=== PATIENT | female | born 1990 | race Caucasian/White ===

== ENCOUNTER 2018-10-20 14:15 | Emergency (ER) | payer OTHER ==
[2018-10-20 14:20] VITALS: BP 142/77
--- NOTE | 2018-10-20 16:02 | XRAY Report ---
Reason: Trauma Procedure Date: 10/20/2018 Accession Number: [id number] / [id number] Procedure: XR - Ankle 3 View LT CPT Code: FULL RESULT: EXAM: LEFT ANKLE RADIOGRAPHY EXAM DATE: 10/20/2018 02:39 PM. CLINICAL HISTORY: Trauma, pain. COMPARISON: None. TECHNIQUE: 3 views. FINDINGS: Bones: Normal. No fractures or bone lesions. Joints: Normal. No effusion. No subluxations. The ankle mortise is normally aligned. Soft Tissues: Prominent soft tissue swelling especially over the lateral malleolus. IMPRESSION: Soft tissue swelling. RADIA
--- NOTE | 2018-10-20 16:02 | XRAY Report ---
Reason: Trauma Procedure Date: 10/20/2018 Accession Number: [id number] / [id number] Procedure: XR - Foot 3 View LT CPT Code: FULL RESULT: EXAM: LEFT FOOT RADIOGRAPHY EXAM DATE: 10/20/2018 02:39 PM. CLINICAL HISTORY: Trauma, pain. COMPARISON: None. TECHNIQUE: 3 views. FINDINGS: Bones: Normal. No fractures or bone lesions. Joints: Normal. No subluxations. Soft Tissues: Unremarkable. IMPRESSION: Normal foot radiography. RADIA
--- NOTE | 2018-10-20 16:05 | ED Physician Documentation ---
PD HPI LOWER EXT INJURY - Stated complaint Stated Complaint: LT ANKLE INJURY - Chief complaint Chief Complaint: Ext Problem - History obtained from History obtained from: Patient - History of Present Illness PD HPI LOW EXT INJURY LOCATION: Left, Ankle, Foot Type of injury: Fall, Twist Where injury occurred: Work (works at a [employer]) Timing - onset: Today Timing - duration: Hours (1) Timing - details: Abrupt onset Pain level max: 5 Pain level now: 3 Improved by: Rest Worsened by: Moving, Palpating Associated symptoms: Swelling. No: Weakness, Numbness, Tingling Contributing factors: No: Anticoagulated Recently seen: Not recently seen Review of Systems Constitutional: denies: Fever : denies: Now EGA Skin: denies: Rash PD PAST MEDICAL HISTORY - Past Medical History Past Medical History: No - Past Surgical History Past Surgical History: No - Living Situation Living Situation: reports: With family Living Arrangement: reports: At home - Social History Does the pt have substance abuse?: No - Family History Family history: reports: Non contributory PD ED PE NORMAL - Vitals Vital signs reviewed: Yes - General General: Alert and oriented X 3, No acute distress - HEENT HEENT: Moist mucous membranes - Neck Neck: Supple, no meningeal sign - Derm Derm: Warm and dry - Extremities Extremities: Other (Diffuse tenderness to palpation about the left ankle. There is swelling over the lateral malleolus. No tenderness further up the leg or over the knee. Also has some tenderness over the Fourth and fifth metatarsals, no deformity. Neurovascular intact) - Neuro Neuro: Alert and oriented X 3 - Psych Psych: Normal mood, Normal affect Results - Vitals Vitals: Vital Signs - 24 hr 10/20/18 14:18 Temperature 36.1 C L Heart Rate 72 Respiratory 18 Rate Blood Pressure 142/77 H O2 Saturation 99 Oxygen O2 Source Room air - Rads (name of study) L foot xray Radiology: Prelim report reviewed, EMP read contemporaneously, See rad report (no fracture) L ankle xray Radiology: Prelim report reviewed, EMP read contemporaneously, See rad report (no fracture) PD MEDICAL DECISION MAKING - ED course Complexity details: reviewed results, re-evaluated patient, considered differential, d/w patient ED course: No acute findings on x-rays. Appears to be a sprain. Placed in an Aircast. She will follow-up with her doctor. Patient counseled regarding signs and symptoms for which I believe and urgent re-evaluation would be necessary. Patient with good understanding of and agreement to plan and is comfortable going home at this time This document was made in part using voice recognition software. While efforts are made to proofread this document, sound alike and grammatical errors may occur. Departure - Departure Disposition: 01 Home, Self Care Clinical Impression: Left ankle sprain Qualifiers: Encounter type: initial encounter Involved ligament of ankle: unspecified ligament Qualified Code(s): S93.402A - Sprain of unspecified ligament of left ankle, initial encounter Condition: Good Instructions: ED Sprain Ankle W X Ray Follow-Up: your,doctor in 1 week [Other] Comments: Your x-ray does not show any fracture today. You may bear weight as tolerated. You can use Motrin or Tylenol as needed for pain. You will be quite sore tomorrow. The brace will help you walk. If you are still having pain in 1 week, you should follow-up with your doctor for a repeat x-ray. return if you worsen. Discharge Date/Time: 10/20/18 16:38
== END 2018-10-20 16:38 | disposition home or self-care (01) ==
LOC: ED 14:15
DX: S93.402A Sprain of unspecified ligament of left ankle, initial encounter (principal); X50.1XXA Overexertion from prolonged static or awkward postures, initial encounter; Y92.29 Other specified public building as the place of occurrence of the external cause; Y99.0 Civilian activity done for income or pay
CPT/HCPCS: 1040M; 73610; 73630; 99282; 99283

== ENCOUNTER 2022-10-07 00:56 | Inpatient (IN) | payer OTHER ==
[2022-10-07] MEDS ORDERED: METHYLERGONOVINE 0.2 MG/ML VIAL IM PRN (01:14)
[2022-10-07] MEDS ORDERED: miSOPROStoL 200 MCG TABLET PR PRN (01:14)
[2022-10-07] MEDS ORDERED: TERBUTALINE 1 MG/ML VIAL SUBQ PRN (01:14)
[2022-10-07] MEDS ORDERED: CARBOPROST TROMETHAMINE 250 MCG/ML AMP IM PRN (01:14)
[2022-10-07] MEDS ORDERED: LACTATED RINGERS 1,000 ML IV PRN (01:14)
[2022-10-07] MEDS ORDERED: hydrALAZINE INJ 20 MG/ML VIAL IVP PRN ×2 (01:14)
[2022-10-07] MEDS ORDERED: miSOPROStoL 200 MCG TABLET BC PRN (01:14)
[2022-10-07] MEDS ORDERED: OXYTOCIN 10 UNIT/ML VIAL IM PRN (01:14)
[2022-10-07] MEDS ORDERED: SODIUM CHLORIDE FLUSH 0.9% 10 ML SYRINGE IVP PRN (01:14)
[2022-10-07] MEDS ORDERED: TRANEXAMIC ACID IN NACL 1,000 MG/100 ML BAG IV PRN (01:14)
[2022-10-07] MEDS ORDERED: OXYTOCIN/SODIUM CHLORIDE 500 ML IV PRN (01:14)
[2022-10-07] MEDS ORDERED: LABETALOL 20 MG/4 ML SYRINGE IVP PRN ×3 (01:14)
[2022-10-07] MEDS ORDERED: fentaNYL 100 MCG/2 ML VIAL IVP PRN (01:14)
[2022-10-07] MEDS ORDERED: NIFEdipine 10 MG CAPSULE PO PRN (01:14)
[2022-10-07] MEDS ORDERED: lidocaine 1% 20 ML MDV ID PRN (01:14)
[2022-10-07] MEDS ORDERED: TRANEXAMIC ACID 1,000 MG/10 ML VIAL ONE (01:35)
[2022-10-07 01:59] LABS: BASOPHILS # (AUTO) 0.1 10^3/uL (0.0-0.1); BASOPHILS % (AUTO) 0.3 %; EOSINOPHILS # (AUTO) 0.1 10^3/uL (0.0-0.7); EOSINOPHILS % (AUTO) 0.6 %; HCT - HEMATOCRIT 37.5 % (37.0-47.0); HGB - HEMOGLOBIN 12.6 g/dL (12.0-16.0); LYMPHOCYTES # (AUTO) 3.1 10^3/uL (1.5-3.5); LYMPHOCYTES % (AUTO) 19.6 %; MEAN CORPUSCULAR HEMOGLOBIN 29.4 pg (27.0-31.0); MEAN CORPUSCULAR HGB CONC 33.6 g/dL (32.0-36.0); MEAN CORPUSCULAR VOLUME 87.6 fL (81.0-99.0); MEAN PLATELET VOLUME 11.8 fL (7.9-10.8); MONOCYTES % (AUTO) 6.3 %; NEUTROPHILS # (AUTO) 11.3 10^3/uL (1.5-6.6); NEUTROPHILS % (AUTO) 72.9 %; PLT - PLATELET COUNT 238 10^3/uL (130-450); RED BLOOD COUNT 4.28 10^6/uL (4.20-5.40); RED CELL DISTRIBUTION WIDTH 12.4 % (12.0-15.0); WHITE BLOOD COUNT 15.5 x10^3/uL (4.8-10.8)
[2022-10-07] MEDS ORDERED: LACTATED RINGERS 1,000 ML IV SCH (02:00)
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
--- NOTE | 2022-10-07 02:49 | DELIVERY NOTE ---
Delivery Note - Labor Labor: positive: Spontaneous - Delivery Method Delivery Method: positive: Spontaneous vaginal delivery - Presentation Presentation: positive: Vertex, CHARLIE - right occiput anterior - Nuchal Cord Nuchal Cord: positive: None - Amniotic Fluid Description Amniotic Fluid Description: positive: Clear - Episiotomy Type Episiotomy Type: positive: None - Laceration Laceration: positive: 1st degree, Vaginal - Suture Suture Type: positive: Vicryl Suture Size: positive: 3-0 - Delivery Outcome Delivery Outcome: positive: Livebirth - [place] : positive: Placed in direct skin contact with mother, Bulb syringe, Stimulated, Warmed, [place] used [place] sex: positive: Female - Cord Cord: positive: 3 vessels - Placenta Placenta: positive: Intact, Spontaneous - Estimated Blood Loss Estimated Blood Loss (in cc): 200 - Post Delivery Events Post Delivery Events: positive: No post delivery events - Delivery Comments (Free Text/Narrative) Delivery Comments (Free Text/Narrative): Labor: This 31yo @ 38.4wks gestation by LMP c/w 10.3wk U/S presented to [facility] in active labor. Upon arrival she was found to contract every 2-3 minutes with soft resting tone. SVE 8/100/0 and vertex with grossly ruptured membranes that was clear fluid. She reports onset of active labor contractions occurred on 10/06/2022 at approximately 2315 with SROM occurring on 10/07/2022 @ 0025 and was noted to be a large amount of clear fluid. FHR pattern demonstrated Category I pattern throughout labor. Precipitous labor course. Pt progressed to c/c/+1 with onset of active pushing @ 0120. : Normal SVB of viable female on 10/07/2022 @ 0130. No nuchal cord. The was placed on maternal abdomen, stimulated, dried, and placed skin to skin. Apgars were 9/9 at 1 and 5 minutes respectively. Pitocin administered via IV for hemostasis. The umbilical cord was allowed to stop pulsating at which time it was doubly clamped by CNM and cut by FOB. Cord blood was obtained. 3VC. Fundal massage and gentle cord traction applied for active management of the third stage. Placenta delivered spontaneously and intact at 0140. EBL 200mL. Fourth stage: Uterine fundus firm and there is no excessive bleeding. The perineum, vagina, and cervix were inspected and found to have first degree vagin al laceration which was repaired using a 3-[address]-1 needle, in standard fashion and under sterile conditions. Vaginal examination following repair was performed. Tissues well approximated. initiated. Family bonding well. Both mother and baby were left in stable condition.
[2022-10-07] MEDS ORDERED: WITCH HAZEL/GLYCERIN 1 PAD TOP PRN (04:47)
[2022-10-07] MEDS ORDERED: HYDROCORTISONE 1% CREAM 28 GM TUBE PR PRN (04:47)
[2022-10-07] MEDS: IBUPROFEN 800 MG TABLET PO SCH ×2 (05:00→11:00)
[2022-10-07] MEDS: ACETAMINOPHEN 500 MG TABLET PO SCH ×2 (05:00→13:00)
[2022-10-07] MEDS: DOCUSATE SODIUM 100 MG CAPSULE PO SCH (10:06)
[2022-10-07 16:00] VITALS: O2SAT 99
[2022-10-08] MEDS: IBUPROFEN 800 MG TABLET PO SCH (05:35)
[2022-10-08] MEDS: DOCUSATE SODIUM 100 MG CAPSULE PO SCH ×2 (05:36→08:37)
[2022-10-08] MEDS: ACETAMINOPHEN 500 MG TABLET PO SCH (05:36)
[2022-10-08 08:47] VITALS: BP 101/62
--- NOTE | 2022-10-08 12:03 | Labor Flowsheet ---
Labor Flowsheet Datetime Report Generated by CPN: 10/08/2022 12:02 Datetime: 10/08/2022 08:34 VITAL SIGNS NBP Sys/Hoa/Mean (mmHg): 101 : 62 : 71 Pulse: 75 Datetime: 10/07/2022 21:50 SpO2 (%): 97 Datetime: 10/07/2022 03:41 Stage of : Datetime: 10/07/2022 03:31 Respirations: 16 Datetime: 10/07/2022 02:46 PAIN Pain Assessment Comments: Pt denies pain meds Datetime: 10/07/2022 02:16 Temperature (C): 36.6 Temperature Route: Oral Datetime: 10/07/2022 01:56 Membranes Ruptured Date/Time: 10/07/2022 00:25 Membranes Rupture Method: Spontaneous Amniotic Fluid Color: Clear Amniotic Fluid Amount: Large Amniotic Fluid Odor: Normal Datetime: 10/07/2022 01:40 Patient Care Comments: placenta out Datetime: 10/07/2022 01:35 UTERINE ACTIVITY Monitor Mode: External Frequency (min): 1.5-2.5 Quality: Strong Duration (sec): 50-70 Pattern: Normal: <= 5 Contractions in 10 Minutes Resting Tone (Palpate): Relaxed ASSESSMENT A Monitor Mode: External US FHR Baseline Rate : 125 Comments: EFM picking up MHR, adj after every UC when pushing, audibly noted FHR 120-130. Other de cels/accels indeterminate, delivery imminent. LaborFlag: Labor Datetime: 10/07/2022 01:20 VAGINAL EXAM Dilatation (cm): 10.0 Exam by: Valerie Calista, CNM Datetime: 10/07/2022 01:16 Monitor Interventions for UA: [place] Adjusted Datetime: 10/07/2022 01:15 Variability: Moderate 6-25 bpm Accelerations: 15X15 Datetime: 10/07/2022 01:10 PATIENT CARE IV/Blood Work: IV Started; Labs Drawn with IV Start; IV Saline Locked Datetime: 10/07/2022 01:08 COMMUNICATION Communication Comments: I'm assuming pt care at this time Datetime: 10/07/2022 01:02 Effacement (%): 100 Station: 0
--- NOTE | 2022-10-09 08:17 | Discharge Plan ---
Discharge Plan Problem Reviewed?: Yes Disposition: Home, Self Care Condition: Good Diet: Regular Activity Restrictions: No Restrictions Shower Restrictions: No Driving Restrictions: No Weight Bearing: Full Weight Instruction Topics: Vaginal After No Smoking: If you smoke, Please STOP! Call for help. Follow-up with: Valerie Grigsby CNM, ARNP [Primary Care Provider] - 1 Week
--- NOTE | 2022-10-09 08:23 | DISCHARGE SUMMARY ---
Discharge Summary Condition at Discharge: Good Discharge Disposition: 01 Home, Self Care - HOSPITAL COURSE Hospital Course: Date of Admission: 10/07/2022 Date of Discharge: 10/08/2022 Diagnosis on Admission: 1. 31yo @ 38.4wks gestation by LMP c/w 10.3wk U/S 2. Active labor 3. FHR Category I 4. GBS negative Diagnosis on Discharge: 1. 31yo PPD#1 s/p TSVB viable female 2. 3. Normal recovery Brief History: [facility] who presented on 10/07/2022 with c/o contractions and vaginal leakage of clear fluid. Upon arrival her cervix was 8/100/0 and vertex with grossly ruptured membranes and clear fluid. She progressed precipitously to spontaneously deliver a viable female on 10/07/2022 @ 0130. Apgars were 9/9 at 1 and 5 minutes respectively. EBL 200mL. 1st degree perineal laceration was repaired in standard fashion and under sterile conditions. She has been doing well in her course. She is ambulating and tolerating a regular diet. She is urinating without difficulty and her lochia is normal. Her pain is well controlled with oral medications. She is without difficulty and she is bonding well with her baby. She will be discharged home today on day #1 with instructions to continue taking her vitamin while and to continue taking ibuprofen and tylenol over the counter as needed for pain management. She intends to follow up with myself in 1 week for routine visit or sooner if needed. She has been given precautions to call if she has any worsening fevers, chills, abomdinal pain, increased vaginal bleeding or foul smelling vaginal lochia. Physical exam: Normocephalic, atraumatic. Heart RRR w/o M/G/R, lungs CTAB, abdomen soft and nontender, fundus firm @U. Perineum intact, light lochia rubra, bilateral LE's no edema. Mood is good. - ALLERGIES Allergies/Adverse Reactions: Allergies Allergy/AdvReac Type Severity Reaction Status Date / Time adhesive tape Allergy Unknown Unknown Verified 10/07/22 02:15 - LABS Result Diagrams: 10/07/22 01:15
== END 2022-10-08 11:45 | disposition home or self-care (01) | DRG 807 ==
LOC: WFO 00:56 → FBP 00:59 → WFO 01:06 → FBP 01:09 → UNDOADMIN 01:09 → FBP 01:15
PROVIDERS: ADMIT Nurse Practitioner Obstetrics & Gynecology; ATTEND Nurse Practitioner Obstetrics & Gynecology
PROC: 0HQ9XZZ Repair Perineum Skin, External Approach (ICD-10-PCS; principal; 2022-10-07)
PROC: 10E0XZZ Delivery of Products of Conception, External Approach (ICD-10-PCS; 2022-10-07)
DX: O70.0 First degree perineal laceration during delivery (principal); Z37.0 Single live birth; O62.3 Precipitate labor; Z3A.38 38 weeks gestation of pregnancy
CPT/HCPCS: 36415; 85025; 86850; 86900; 86901; A9270; J7120; 99215